=== PATIENT | male | born 1970 | race Caucasian/White ===

== ENCOUNTER 2017-07-13 01:41 | Emergency (ER) | payer SELFPAY ==
[2017-07-13 02:33] LABS: Basophils % (Auto) 0.7 % (0.0-1.8); Eosinophils # (Auto) 0.1 K/mm3 (0.0-0.4); Eosinophils % (Auto) 2.1 % (0.0-4.3); Hematocrit 45.9 % (35.5-45.6); Hemoglobin 15.8 gm/dl (11.8-15.2); Lymphocytes # (Auto) 1.6 K/mm3 (1.2-5.4); Lymphocytes % (Auto) 31.6 % (13.4-35.0); Mean Corpuscular HGB Conc 35 % (32-34); Mean Corpuscular Hemoglobin 34 pg (28-32); Mean Corpuscular Volume 97 fl (84-94); Monocytes # (Auto) 0.4 K/mm3 (0.0-0.8); Monocytes % (Auto) 7.8 % (0.0-7.3); Red Blood Count 4.73 M/mm3 (3.65-5.03); Red Cell Distribution Width 13.9 % (13.2-15.2)
[2017-07-13 02:46] LABS: Platelet Count 219 K/mm3 (140-440)
[2017-07-13 02:49] LABS: BUN/Creatinine Ratio 18; Blood Urea Nitrogen 11 mg/dL (9-20); Calcium 9.1 mg/dL (8.4-10.2); Hemolysis Index 5
[2017-07-13 02:50] LABS: INR 0.8 (0.87-1.13)
--- NOTE | 2017-07-13 08:48 | Emergency Department Report ---
ED ENT HPI - General Chief complaint: Nosebleed Stated complaint: NOSE BLEED Time Seen by Provider: 07/13/17 07:12 Source: family Mode of arrival: Ambulatory Limitations: Language Barrier - History of Present Illness Initial comments: This is a 46-year-old male nontoxic, well nourished in appearance, no acute signs of distress presents to the ED with c/o of intermittent nose bleed x2 weeks. Patient stated this is his second time getting a nose bleed and stated he came in to the ED because he felt dizzy. Patient stated nose bleed stopped prior to coming to the ED and lasted about 8 minutes. Patient denies any trauma. Patient denies any syncope, headache, stiff neck, nausea, vomiting, chest pain, shortness of breathe, fever, chills, numbness, or tingling. Patient also stated has a cough but is nonproductive x2 weeks. Patient stated this may be the trigger. Patient denies any allergies or PMH. MD complaint: epistaxis -: week(s) (2) Severity scale (0 -10): 0 Consistency: now resolved Improves with: none Worsens with: none Associated Symptoms: denies: fever, cough, gum swelling, toothache, pain with swallowing, sore throat, tinnitus, hearing loss, discharge from ear, rhinorrhea - Related Data Allergies Allergy/AdvReac Type Severity Reaction Status Date / Time No Known Allergies Allergy Unverified 07/13/17 02:00 ED Dental HPI - General Chief complaint: Nosebleed Stated complaint: NOSE BLEED Time Seen by Provider: 07/13/17 07:12 Source: family Mode of arrival: Ambulatory Limitations: Language Barrier - Related Data Allergies Allergy/AdvReac Type Severity Reaction Status Date / Time No Known Allergies Allergy Unverified 07/13/17 02:00 ED Review of Systems ROS: Stated complaint: NOSE BLEED Other details as noted in HPI Constitutional: denies: chills, fever Eyes: denies: eye pain, eye discharge, vision change ENT: epistaxis. denies: ear pain, throat pain Respiratory: denies: cough, shortness of breath, wheezing Cardiovascular: denies: chest pain, palpitations Endocrine: no symptoms reported Gastrointestinal: denies: abdominal pain, nausea, diarrhea Genitourinary: denies: urgency, dysuria Musculoskeletal: denies: back pain, joint swelling, arthralgia Skin: denies: rash, lesions Neurological: denies: headache, weakness, paresthesias Psychiatric: denies: anxiety, depression Hematological/Lymphatic: denies: easy bleeding, easy bruising ED Past Medical Hx - Past Medical History Previous Medical History?: No - Surgical History Past Surgical History?: No - Social History Smoking Status: Never Smoker Substance Use Type: None ED Physical Exam - General Limitations: Language Barrier General appearance: alert, in no apparent distress - Head Head exam: Present: atraumatic, normocephalic - Eye Eye exam: Present: normal appearance, PERRL, EOMI Pupils: Present: normal accommodation - ENT ENT exam: Present: normal exam, normal orophraynx, mucous membranes moist, TM's normal bilaterally, normal external ear exam - Neck Neck exam: Present: normal inspection, full ROM. Absent: tenderness, meningismus, lymphadenopathy, thyromegaly - Respiratory Respiratory exam: Present: normal lung sounds bilaterally. Absent: respiratory distress, wheezes, rales, rhonchi, stridor, chest wall tenderness, accessory muscle use, decreased breath sounds, prolonged expiratory - Cardiovascular Cardiovascular Exam: Present: regular rate, normal rhythm, normal heart sounds. Absent: irregular rhythm, systolic murmur, diastolic murmur, rubs, gallop - GI/Abdominal GI/Abdominal exam: Present: soft, normal bowel sounds. Absent: distended, tenderness, guarding, rebound, rigid, diminished bowel sounds - Rectal Rectal exam: Present: deferred - Extremities Exam Extremities exam: Present: normal inspection, full ROM, normal capillary refill. Absent: tenderness, pedal edema, joint swelling, calf tenderness - Back Exam Back exam: Present: normal inspection, full ROM. Absent: tenderness, CVA tenderness (R), CVA tenderness (L), muscle spasm, paraspinal tenderness, vertebral tenderness, rash noted - Neurological Exam Neurological exam: Present: alert, oriented X3, CN II-XII intact, normal gait, reflexes normal - Psychiatric Psychiatric exam: Present: normal affect, normal mood - Skin Skin exam: Present: warm, dry, intact, normal color. Absent: rash - Other Other exam information: no foreign body, abscess, or hematoma present in the nostril bilateral. ED Course Vital Signs 07/13/17 07/13/17 07/13/17 01:49 01:58 09:02 Temperature 97.4 F L 97.4 F L 97.5 F L Pulse Rate 94 H 94 H 82 Respiratory 20 18 20 Rate Blood Pressure 142/102 Blood Pressure 142/102 158/98 [Right] O2 Sat by Pulse 96 99 96 Oximetry - Reevaluation(s) Reevaluation #1: 07/13/17 08:48 Patient is speaking in full sentences with no signs of distress noted. Reevaluation #2: 07/13/17 08:48 Obstetrics Specialist phone line ID number [id number] was used for interpretation. ED Medical Decision Making - Lab Data Result diagrams: 07/13/17 02:17 07/13/17 02:17 - Medical Decision Making This is a 46-year-old male that presents with epistaxis. Patient is stable and was examined by me. [employer] phone line with IV #[id number] has been used. There is no foreign body, abscess or hematoma present are bilateral nostrils. Labs are within normal limits. Due to patient's state and has a dry nonproductive cough a chest x-ray has been obtained within normal limits and dictated by radiologist. Vitals signs stable. B/P within normal limits. The epistaxis is not present during interview and discharge. Patient was referred and was instructed to Follow-up with a primary care doctor in 3-5 days or if symptoms worsen and continue return to emergency room as soon as possible. At time of discharge, the patient does not seem toxic or ill in appearance. No acute signs of distress noted. Patient agrees to discharge treatment plan of care. No further questions noted by the patient. Critical care attestation.: If time is entered above; I have spent that time in minutes in the direct care of this critically ill patient, excluding procedure time. ED Disposition Clinical Impression: Epistaxis Disposition: DC-01 TO HOME OR SELFCARE Is pt being admited?: No Does the pt Need Aspirin: No Condition: Stable Instructions: Epistaxis (ED) Additional Instructions: Follow-up with a primary care doctor in 3-5 days or if symptoms worsen and continue return to emergency room as soon as possible. Referrals: ODILIA CONTRERAS MD [Primary Care Provider] - 3-5 Days PRIMARY CARE, [Referring] - 3-5 Days [facility] [Outside] - 3-5 Days [facility] [Outside] - 3-5 Days Forms: Work/School Release Form(ED)
[2017-07-13 09:02] VITALS: BP 158/98
--- NOTE | 2017-07-13 09:39 | XRay Report ---
ROUTINE CHEST, TWO VIEWS: HISTORY: Cough. The trachea, heart, mediastinal contour, lung bain and bony thorax are unremarkable. IMPRESSION: Unremarkable chest x-ray.
== END 2017-07-13 10:00 | disposition home or self-care (01) ==
LOC: ED 01:41
DX: R04.0 Epistaxis (principal)
CPT/HCPCS: 36415; 71046; 80048; 85025; 85610; 99283